=== PATIENT | female | born 1965 | race African-American/Black ===

== ENCOUNTER 2020-07-10 15:15 | Inpatient (IN) ==
[2020-07-10] MEDS ORDERED: Dextrose 50% Syringe 50 ml 25 GM/50 ML SYRINGE IV PUSH PRN (18:09)
[2020-07-10] MEDS ORDERED: Vancomycin per Pharmacy 1 EA NOTE FOLLOW UP SCH (19:00)
[2020-07-10] MEDS: Meropenem 1 GM PREMIX(*) 1 GM/50 ML BAG IV SCH (19:26)
[2020-07-10 19:35] LABS: Hematocrit 35 % (35-47); Hemoglobin 11.5 g/dL (12.0-16.0); Mean Corpuscular HGB Conc 33 g/dL (31-36); Mean Corpuscular Hemoglobin 30 pg (27-31); Mean Corpuscular Volume 90 fL (80-97); Mean Platelet Volume 10.4 fL (7.4-10.4); Platelet Count 214 10^3/uL (150-450); Red Blood Count 3.92 10^6 /uL (3.70-4.87); Red Cell Distribution Width 14 % (10-15); White Blood Count 15.5 10^3/uL (3.5-10.8)
[2020-07-10 19:41] LABS: INR 1.25 (0.82-1.09)
[2020-07-10 19:52] LABS: BUN/Creatinine Ratio 23.5 (8-20); Calcium 8.5 mg/dL (8.6-10.3); EGFR African American 67.8 (>60); EGFR Non-African American 56.1 (>60); Potassium 3.9 mmol/L (3.5-5.0)
[2020-07-10 19:59] LABS: ABS Basophils 0.1 10^3/ul (0-0.2); ABS Lymphocytes 1.7 10^3/ul (1.0-4.8); ABS Monocytes 0.9 10^3/ul (0-0.8); ABS Neutrophils 12.8 10^3/ul (1.5-7.7); Eosinophil % 0.2 %; Lymphocyte % 11.1 %
[2020-07-10] MEDS ORDERED: Enoxaparin 40 MG/0.4 ML SYR SUBCUT SCH (20:00)
[2020-07-10 22:25] LABS: Urine Appearance Cloudy; Urine Bilirubin Negative (Negative); Urine Blood Negative (Negative); Urine Color Yellow; Urine Glucose 3+(>=500 mg/dL) (Negative); Urine Ketones 1+ (Negative); Urine Nitrite Negative (Negative); Urine Protein Negative (Negative); Urine Specific Gravity 1.008 (1.010-1.030); Urine Urobilinogen Negative (Negative)
[2020-07-10] MEDS: Vancomycin 1,000 MG in NS 0.9% 250 ml 250 ML IV SCH (23:57)
[2020-07-11] MEDS: Meropenem 1 GM PREMIX(*) 1 GM/50 ML BAG IV SCH ×2 (03:51→12:58)
[2020-07-11] MEDS: Vancomycin 1,000 MG in NS 0.9% 250 ml 250 ML IV SCH ×3 (06:53→23:49)
[2020-07-11 07:51] LABS: Hematocrit 32 % (35-47); Hemoglobin 10.7 g/dL (12.0-16.0); Mean Corpuscular HGB Conc 34 g/dL (31-36); Mean Corpuscular Hemoglobin 30 pg (27-31); Mean Corpuscular Volume 90 fL (80-97); Mean Platelet Volume 10.1 fL (7.4-10.4); Platelet Count 184 10^3/uL (150-450); Red Blood Count 3.51 10^6 /uL (3.70-4.87); Red Cell Distribution Width 14 % (10-15); White Blood Count 13.9 10^3/uL (3.5-10.8)
[2020-07-11 07:57] LABS: INR 1.25 (0.82-1.09)
[2020-07-11 08:34] LABS: Albumin 2.2 g/dL (3.2-5.2); Albumin/Globulin Ratio 0.7 (1-3); BUN/Creatinine Ratio 23.2 (8-20); Calcium 7.7 mg/dL (8.6-10.3); EGFR African American 70.2 (>60); Potassium 4.4 mmol/L (3.5-5.0); Total Bilirubin 0.5 mg/dL (0.2-1.0); Total Protein 5.2 g/dL (6.4-8.9)
[2020-07-11 08:40] LABS: ABS Lymphocytes 1.1 10^3/ul (1.0-4.8); ABS Monocytes 1.6 10^3/ul (0-0.8); ABS Neutrophils 11.1 10^3/ul (1.5-7.7); Eosinophil % 0.2 %; Lymphocyte % 8.2 %; Nucleated Red Blood Cells % 0.1
[2020-07-11] MEDS ORDERED: fentaNYL 250 mcg/5 ml 50 MCG/ML 5 ml VIAL (250 MCG) ONE (08:43)
[2020-07-11] MEDS ORDERED: Midazolam 2 mg/2 ml VIAL 1 mg/ml 2 ml VIAL (2 mg) ONE (08:43)
[2020-07-11] MEDS ORDERED: Lidocaine 1% w EPI 1:200,000 SDV 30 ML VIAL ONE (09:14)
[2020-07-11] MEDS ORDERED: Dextrose 50% Syringe 50 ml 25 GM/50 ML SYRINGE IV PUSH PRN (09:54)
[2020-07-11] MEDS ORDERED: Ondansetron 4 mg VIAL 2 MG/ML 2 ml VIAL IV PRN (10:55)
[2020-07-11] MEDS ORDERED: Naloxone 0.4 mg VIAL 0.4 mg/ml 1 ml VIAL IV PRN (10:55)
[2020-07-11 11:10] LABS: Calcium 8.1 mg/dL (8.6-10.3); EGFR African American 69.4 (>60); EGFR Non-African American 57.4 (>60); Potassium 4.1 mmol/L (3.5-5.0)
[2020-07-11] MEDS: Insulin GLARGINE 100 un/ml 10 ml VIAL SUBCUT SCH (12:58)
[2020-07-11] MEDS ORDERED: Vancomycin Trough Check NOTE FOLLOW UP ONE (14:30)
[2020-07-11] MEDS: NS 0.9% 1000 ml BAG 1,000 ML IV SCH (15:22)
[2020-07-11 16:01] LABS: C Reactive Protein 381.51 mg/L (<8.01)
[2020-07-11] MEDS: cefTRIAXone 1 gm/50 mL NS BAG 1 GM/50 ML BAG IVPB SCH (20:01)
[2020-07-12] MEDS ORDERED: Vancomycin Trough Check NOTE FOLLOW UP ONE (07:30)
[2020-07-12 08:21] LABS: Hematocrit 28 % (35-47); Hemoglobin 9.4 g/dL (12.0-16.0); Mean Corpuscular HGB Conc 34 g/dL (31-36); Mean Corpuscular Hemoglobin 30 pg (27-31); Mean Corpuscular Volume 89 fL (80-97); Mean Platelet Volume 10.1 fL (7.4-10.4); Platelet Count 189 10^3/uL (150-450); Red Cell Distribution Width 14 % (10-15); White Blood Count 14.1 10^3/uL (3.5-10.8)
[2020-07-12 08:23] LABS: BUN/Creatinine Ratio 20.4 (8-20); Calcium 7.7 mg/dL (8.6-10.3); EGFR African American 75.5 (>60); EGFR Non-African American 62.4 (>60); Potassium 3.8 mmol/L (3.5-5.0)
[2020-07-12] MEDS: Vancomycin 1,000 MG in NS 0.9% 250 ml 250 ML IV SCH (09:06)
[2020-07-12 09:07] LABS: ABS Basophils 0.1 10^3/ul (0-0.2); ABS Lymphocytes 2.2 10^3/ul (1.0-4.8); ABS Neutrophils 10.8 10^3/ul (1.5-7.7); Lymphocyte % 15.3 %; Nucleated Red Blood Cells % 0.1
[2020-07-12] MEDS: Insulin GLARGINE 100 un/ml 10 ml VIAL SUBCUT SCH (12:38)
[2020-07-12] MEDS: NS 0.9% 1000 ml BAG 1,000 ML IV SCH (13:28)
[2020-07-12] MEDS: Vancomycin 1,250 MG in NS 0.9% 250 ml 250 ML IV SCH (17:28)
[2020-07-12] MEDS: cefTRIAXone 1 gm/50 mL NS BAG 1 GM/50 ML BAG IVPB SCH (21:07)
[2020-07-13] MEDS: Vancomycin 1,250 MG in NS 0.9% 250 ml 250 ML IV SCH (06:28)
[2020-07-13 07:23] LABS: Hematocrit 28 % (35-47); Hemoglobin 9.3 g/dL (12.0-16.0); Mean Corpuscular HGB Conc 34 g/dL (31-36); Mean Corpuscular Hemoglobin 31 pg (27-31); Mean Corpuscular Volume 90 fL (80-97); Mean Platelet Volume 9.9 fL (7.4-10.4); Platelet Count 225 10^3/uL (150-450); Red Blood Count 3.06 10^6 /uL (3.70-4.87); Red Cell Distribution Width 15 % (10-15); White Blood Count 14.3 10^3/uL (3.5-10.8)
[2020-07-13 07:32] LABS: BUN/Creatinine Ratio 11.7 (8-20); Calcium 7.6 mg/dL (8.6-10.3); EGFR African American 27.5 (>60); EGFR Non-African American 22.7 (>60); Potassium 3.8 mmol/L (3.5-5.0)
[2020-07-13 08:07] LABS: ABS Basophils 0.1 10^3/ul (0-0.2); ABS Lymphocytes 2.3 10^3/ul (1.0-4.8); ABS Monocytes 1.2 10^3/ul (0-0.8); ABS Neutrophils 10.7 10^3/ul (1.5-7.7); Eosinophil % 0.2 %; Lymphocyte % 16.1 %; Nucleated Red Blood Cells % 0.2
[2020-07-13] MEDS: Insulin GLARGINE 100 un/ml 10 ml VIAL SUBCUT SCH (10:20)
[2020-07-13 10:59] LABS: C Reactive Protein 227.16 mg/L (<8.01)
[2020-07-13] MEDS: NS 0.9% 1000 ml BAG 1,000 ML IV SCH (11:58)
[2020-07-13] MEDS ORDERED: NS 0.9% 1000 ml BAG 1,000 ML IV SCH (15:11)
[2020-07-13] MEDS: cefTRIAXone 1 gm/50 mL NS BAG 1 GM/50 ML BAG IVPB SCH (19:39)
[2020-07-14] MEDS ORDERED: Dextrose 50% Syringe 50 ml 25 GM/50 ML SYRINGE IV PUSH PRN ×2 (00:55→00:56)
[2020-07-14] MEDS ORDERED: NS 0.9% 1000 ml BAG 1,000 ML IV ONE (00:57)
[2020-07-14] MEDS ORDERED: NS 0.9% 1000 ml BAG 1,000 ML IV SCH ×3 (00:57→12:29)
[2020-07-14 01:16] LABS: Urine Appearance Turbid; Urine Bilirubin Negative (Negative); Urine Blood Negative (Negative); Urine Color Amber; Urine Glucose 1+(50 mg/dL) (Negative); Urine Ketones Negative (Negative); Urine Nitrite Negative (Negative); Urine Protein 1+(30 mg/dL) (Negative); Urine Specific Gravity 1.014 (1.010-1.030); Urine Urobilinogen Negative (Negative)
[2020-07-14 01:29] LABS: Urine Bacteria 1+ (Absent); Urine Red Blood Cell 1+(3-5/hpf) (Absent); Urine Squamous Epithelial Cell Present (Absent); Urine White Blood Cell Trace(0-5/hpf) (Absent)
[2020-07-14] MEDS ORDERED: Vancomycin Trough Check NOTE FOLLOW UP ONE (05:30)
[2020-07-14 06:46] LABS: Hematocrit 28 % (35-47); Hemoglobin 9.3 g/dL (12.0-16.0); Mean Corpuscular HGB Conc 33 g/dL (31-36); Mean Corpuscular Hemoglobin 31 pg (27-31); Mean Corpuscular Volume 91 fL (80-97); Mean Platelet Volume 9.4 fL (7.4-10.4); Platelet Count 267 10^3/uL (150-450); Red Blood Count 3.04 10^6 /uL (3.70-4.87); Red Cell Distribution Width 15 % (10-15); White Blood Count 14.8 10^3/uL (3.5-10.8)
[2020-07-14 07:03] LABS: Calcium 7.4 mg/dL (8.6-10.3); EGFR African American 16.1 (>60); EGFR Non-African American 13.3 (>60); Potassium 4.2 mmol/L (3.5-5.0)
[2020-07-14 07:39] LABS: ABS Basophils 0.1 10^3/ul (0-0.2); ABS Eosinophils 0.1 10^3/ul (0-0.6); ABS Lymphocytes 1.5 10^3/ul (1.0-4.8); ABS Monocytes 1.2 10^3/ul (0-0.8); ABS Neutrophils 11.9 10^3/ul (1.5-7.7); Eosinophil % 0.6 %; Nucleated Red Blood Cells % 0.1
[2020-07-14] MEDS: Insulin GLARGINE 100 un/ml 10 ml VIAL SUBCUT SCH (09:31)
[2020-07-14] MEDS ORDERED: Furosemide 100 mg/10 ml IV VIAL IV ONE ×2 (14:06→17:08)
[2020-07-14 15:33] LABS: C Reactive Protein 198.76 mg/L (<8.01); Uric Acid 10.3 mg/dL (2.3-6.6)
[2020-07-14 15:43] LABS: Rheumatoid Factor < 10 IU/mL (<15)
[2020-07-14 16:29] LABS: Hepatitis B Surface Ab Not Immune (Immune)
[2020-07-14 16:30] LABS: Hepatitis C Antibody Negative (Negative)
[2020-07-14] MEDS: metroNIDAZOLE IV 500 MG/100ML 500 MG/100 ML BAG IVPB SCH (18:03)
[2020-07-14 18:41] LABS: BUN/Creatinine Ratio 8.2 (8-20); Calcium 7.7 mg/dL (8.6-10.3); EGFR African American 13.5 (>60); EGFR Non-African American 11.2 (>60); Potassium 3.8 mmol/L (3.5-5.0)
[2020-07-14] MEDS: cefTRIAXone 1 gm/50 mL NS BAG 1 GM/50 ML BAG IVPB SCH (21:04)
[2020-07-14 21:11] LABS: Hepatitis B Surface Antigen Nonreactive (Nonreactive)
[2020-07-14] MEDS: Heparin 5000 UNITS/ML 1 mL VIAL SUBCUT SCH (21:58)
[2020-07-15] MEDS: Heparin 5000 UNITS/ML 1 mL VIAL SUBCUT SCH ×3 (06:11→21:42)
[2020-07-15] MEDS: metroNIDAZOLE IV 500 MG/100ML 500 MG/100 ML BAG IVPB SCH ×2 (06:12→17:56)
[2020-07-15 06:55] LABS: ABS Basophils 0.1 10^3/ul (0-0.2); ABS Eosinophils 0.1 10^3/ul (0-0.6); ABS Lymphocytes 1.7 10^3/ul (1.0-4.8); ABS Monocytes 0.8 10^3/ul (0-0.8); Eosinophil % 0.6 %; Hematocrit 28 % (35-47); Hemoglobin 9.2 g/dL (12.0-16.0); Lymphocyte % 13.6 %; Mean Corpuscular HGB Conc 33 g/dL (31-36); Mean Corpuscular Hemoglobin 30 pg (27-31); Mean Corpuscular Volume 91 fL (80-97); Mean Platelet Volume 9.2 fL (7.4-10.4); Nucleated Red Blood Cells % 0.1; Platelet Count 334 10^3/uL (150-450); Red Blood Count 3.07 10^6 /uL (3.70-4.87); Red Cell Distribution Width 15 % (10-15); White Blood Count 12.7 10^3/uL (3.5-10.8)
[2020-07-15 07:27] LABS: BUN/Creatinine Ratio 7.4 (8-20); Calcium 7.8 mg/dL (8.6-10.3); EGFR African American 11.6 (>60); EGFR Non-African American 9.6 (>60)
[2020-07-15 08:08] LABS: C Reactive Protein 170.29 mg/L (<8.01)
[2020-07-15] MEDS ORDERED: Furosemide 100 mg/10 ml IV VIAL IV ONE (09:51)
[2020-07-15] MEDS: Insulin GLARGINE 100 un/ml 10 ml VIAL SUBCUT SCH (10:16)
[2020-07-15 20:33] LABS: BUN/Creatinine Ratio 7.4 (8-20); Calcium 7.9 mg/dL (8.6-10.3); EGFR African American 10.2 (>60); EGFR Non-African American 8.4 (>60); Potassium 3.9 mmol/L (3.5-5.0)
[2020-07-15] MEDS: cefTRIAXone 1 gm/50 mL NS BAG 1 GM/50 ML BAG IVPB SCH (21:48)
[2020-07-15] MEDS: Sodium Bicarbonate 8.4% VIAL 1 MEQ/ML 50 ml VIAL (50 meq) IV SCH (22:14)
[2020-07-15 22:36] LABS: UR Microalbumin (mg/L) 16.8 mg/L; Urine Creatinine 65.88 mg/dL; Urine Creatinine Concentration 65.88 mg/dL; Urine Microalbumin/Creatinine 25.5 (<31)
[2020-07-15 22:42] LABS: Urine Appearance Cloudy; Urine Bilirubin Negative (Negative); Urine Blood 2+ (Negative); Urine Color Yellow; Urine Glucose Negative (Negative); Urine Ketones Negative (Negative); Urine Nitrite Negative (Negative); Urine Protein Negative (Negative); Urine Specific Gravity 1.008 (1.010-1.030); Urine Urobilinogen Negative (Negative)
[2020-07-15 23:04] LABS: Urine Bacteria 1+ (Absent); Urine Red Blood Cell 2+(6-10/hpf) (Absent); Urine Squamous Epithelial Cell Present (Absent); Urine White Blood Cell 3+(>20/hpf) (Absent)
[2020-07-16] MEDS: Heparin 5000 UNITS/ML 1 mL VIAL SUBCUT SCH ×3 (05:50→21:48)
[2020-07-16] MEDS: metroNIDAZOLE IV 500 MG/100ML 500 MG/100 ML BAG IVPB SCH ×2 (05:52→17:54)
[2020-07-16 06:36] LABS: ABS Basophils 0.1 10^3/ul (0-0.2); ABS Eosinophils 0.1 10^3/ul (0-0.6); ABS Lymphocytes 1.6 10^3/ul (1.0-4.8); ABS Monocytes 0.8 10^3/ul (0-0.8); ABS Neutrophils 7.5 10^3/ul (1.5-7.7); Eosinophil % 0.7 %; Hematocrit 26 % (35-47); Hemoglobin 8.9 g/dL (12.0-16.0); Mean Corpuscular HGB Conc 34 g/dL (31-36); Mean Corpuscular Hemoglobin 31 pg (27-31); Mean Corpuscular Volume 91 fL (80-97); Mean Platelet Volume 8.8 fL (7.4-10.4); Nucleated Red Blood Cells % 0.1; Platelet Count 383 10^3/uL (150-450); Red Blood Count 2.88 10^6 /uL (3.70-4.87); Red Cell Distribution Width 15 % (10-15)
[2020-07-16 06:50] LABS: BUN/Creatinine Ratio 7.7 (8-20); Calcium 7.9 mg/dL (8.6-10.3); EGFR African American 10.4 (>60); EGFR Non-African American 8.6 (>60); Potassium 3.8 mmol/L (3.5-5.0)
[2020-07-16] MEDS: Insulin GLARGINE 100 un/ml 10 ml VIAL SUBCUT SCH (10:45)
[2020-07-16] MEDS: Sodium Bicarbonate 8.4% VIAL 1 MEQ/ML 50 ml VIAL (50 meq) IV SCH (10:45)
[2020-07-16 18:54] LABS: BUN/Creatinine Ratio 8.2 (8-20); EGFR African American 11.1 (>60); EGFR Non-African American 9.2 (>60); Potassium 3.8 mmol/L (3.5-5.0)
[2020-07-16] MEDS: cefTRIAXone 1 gm/50 mL NS BAG 1 GM/50 ML BAG IVPB SCH (19:37)
[2020-07-16] MEDS: Sodium Citrate/Citric Acid LIQ 15 ML UDC PO SCH (21:48)
[2020-07-17] MEDS: Heparin 5000 UNITS/ML 1 mL VIAL SUBCUT SCH ×3 (06:13→21:22)
[2020-07-17] MEDS: metroNIDAZOLE IV 500 MG/100ML 500 MG/100 ML BAG IVPB SCH ×2 (06:13→18:22)
[2020-07-17 06:19] LABS: BUN/Creatinine Ratio 8.9 (8-20); EGFR African American 12.9 (>60); EGFR Non-African American 10.7 (>60); Potassium 3.9 mmol/L (3.5-5.0)
[2020-07-17] MEDS: Insulin GLARGINE 100 un/ml 10 ml VIAL SUBCUT SCH (09:51)
[2020-07-17] MEDS: Sodium Citrate/Citric Acid LIQ 15 ML UDC PO SCH ×3 (09:52→21:21)
[2020-07-17 18:32] LABS: BUN/Creatinine Ratio 10.3 (8-20); Calcium 8.1 mg/dL (8.6-10.3); EGFR African American 16.9 (>60); Potassium 3.4 mmol/L (3.5-5.0)
[2020-07-17] MEDS: cefTRIAXone 1 gm/50 mL NS BAG 1 GM/50 ML BAG IVPB SCH (21:12)
[2020-07-18] MEDS: Heparin 5000 UNITS/ML 1 mL VIAL SUBCUT SCH ×2 (06:12→13:52)
[2020-07-18] MEDS: metroNIDAZOLE IV 500 MG/100ML 500 MG/100 ML BAG IVPB SCH (06:13)
[2020-07-18 07:24] LABS: BUN/Creatinine Ratio 10.5 (8-20); Calcium 7.8 mg/dL (8.6-10.3); EGFR African American 21.6 (>60); EGFR Non-African American 17.8 (>60); Potassium 3.4 mmol/L (3.5-5.0)
[2020-07-18] MEDS ORDERED: Potassium Chlor 20 meq TAB.ER PO ONE (08:19)
[2020-07-18 08:43] LABS: Magnesium 1.4 mg/dL (1.9-2.7)
[2020-07-18] MEDS ORDERED: Magnesium Sulfate 2 gm BAG 2 GM/50 ML BAG IVPB ONE (09:28)
[2020-07-18] MEDS: Insulin GLARGINE 100 un/ml 10 ml VIAL SUBCUT SCH (09:35)
[2020-07-18] MEDS: Sodium Citrate/Citric Acid LIQ 15 ML UDC PO SCH ×2 (09:36→13:57)
[2020-07-18 09:42] LABS: C Reactive Protein 85.19 mg/L (<8.01)
[2020-07-18 11:50] VITALS: BP 104/52
[2020-07-18 12:55] LABS: Complement C3 178 mg/dL (75 - 175)
[2020-07-18 15:17] LABS: C-ANCA Negative (Negative); P-ANCA Negative (Negative)
[2020-07-18 16:43] LABS: Phospholipase A2 Receptor IFA Negative (Negative); Phospholipase A2 ReceptorELISA <2 RU/mL
[2020-07-18 17:39] LABS: Albumin 1.6 g/dL (3.4-4.7); Albumin/Globulin Ratio 0.48; Gamma Globulin 1.1 g/dL (0.6-1.6); Total Protein(PEP) 4.9 g/dL (6.3 - 7.9)
[2020-07-18 22:05] LABS: Urine Kappa Total Light Chain 2.32 mg/dL (<0.9000); Urine Kappa/Lambda Light Chain 1.07
== END 2020-07-18 15:00 | disposition home or self-care (01) | DRG 570 ==
LOC: MED → OBSVTOIN 18:05
PROVIDERS: ADMIT Internal Medicine; ATTEND Internal Medicine